=== PATIENT | female | born 1980 | race American Indian/Alaskan Native ===

== ENCOUNTER 2018-01-25 08:15 | Outpatient (CLI) | payer BC ==
--- NOTE | 2018-01-25 10:55 | Ultrasound Report ---
TRANSABDOMINAL AND TRANSVAGINAL PELVIC ULTRASOUND: 01/25/18 08:15:00 CLINICAL: Pelvic pain and urinary retention. FINDINGS: Transabdominal and transvaginal pelvic ultrasound demonstrated enlarged fibroid uterus measuring 14.2 x 5.9 x 7.0 cm. A dominant fundal fibroid measures 6.1 x 5.4 x 5.4 cm. It is relatively central in an intramural or submucosal location. The uterus is better imaged on the transabdominal exam and the fibroid appears to be contiguous to and right lateral to the uterine stripe.The uterine stripe is not imaged optimally for measurement but appears normal and measures approximately 14 mm on the transvaginal exam. Ovaries are identified on the transabdominal exam and are normal. The right ovary measures 1.8 x 1.7 x 1.6cm. The left ovary measures 2.9 x 2.3 x 2.5cm. No adnexal mass. No free fluid. The urinary bladder is moderately distended and otherwise unremarkable. IMPRESSION: An enlarged fibroid uterus with a dominant 6.1 cm central fundal fibroid. 2. Normal endometrium. 3. Normal ovaries.
== END 2018-01-25 08:16 | disposition home or self-care (01) ==
LOC: SPVWC 08:15
PROVIDERS: ATTEND Family Medicine
DX: D25.9 Leiomyoma of uterus, unspecified (principal); R33.9 Retention of urine, unspecified
CPT/HCPCS: 76830; 76856